=== PATIENT | female | born 1985 | race African-American/Black ===

== ENCOUNTER 2020-12-03 11:37 | Emergency (ER) | payer BC, SELFPAY ==
[2020-12-03] MEDS ORDERED: Ondansetron PF 4 MG/2 ML Vial ONE (12:40)
== END 2020-12-03 11:40 | disposition home or self-care (01) ==
LOC: ERS 11:37
DX: O21.0 Mild hyperemesis gravidarum (principal); Z3A.13 13 weeks gestation of pregnancy
CPT/HCPCS: 36415; 76815; 80053; 81003; 81015; 83690; 84702; 85025; 86900; 86901; 87086; 96374; J2405

== ENCOUNTER 2024-06-30 23:10 | Emergency (ER) | payer BC, SELFPAY ==
[2024-06-30] MEDS ORDERED: Sodium Bicarb 50 MEQ/50 ML Abboject 8.4% SYRINGE ONE (23:13)
[2024-06-30] MEDS ORDERED: EPINEPHrine 1 MG/10 ML Abboject SYRINGE ONE (23:13)
[2024-06-30] MEDS ORDERED: Calcium Chloride 1 GM/10 ML Abboject SYRINGE ONE (23:13)
[2024-06-30] MEDS ORDERED: Tranexamic Acid 1,000 MG/10 ML VIAL ONE (23:15)
[2024-06-30] MEDS ORDERED: NOREPINEPHRINE 8 MG/250 ML-D5W 250 ML ONE (23:23)
[2024-06-30 23:35] LABS: #Basophils 0.06 10x3/uL (0.0-0.2); %Basophils 0.7 % (0.0-1.0); %Lymphocytes 81.4 % (21.0-51.0); %Monocytes 4.8 % (0.0-10.0); %Neutrophils 8.9 % (42.0-75.0); Hematocrit 36.4 % (36.0-47.0); Hemoglobin 10.5 g/dL (12.0-16.0); Mean Corpuscular HGB CONC 28.8 g/dL (32.0-36.0); Mean Corpuscular Hemoglobin 28.2 pg (27.0-31.0); Mean Corpuscular Volume 97.6 fL (78.0-98.0); Mean Platelet Volume 10.4 fL (7.4-10.4); Platelet Count 102 10x3/uL (130-400); RBC Distribution Width 12.6 % (11.5-14.5); Red Blood Cell (RBC) Count 3.73 mill/uL (4.20-5.40)
[2024-06-30 23:44] LABS: INR-International Normal Ratio 1.8; Prothrombin Time 20.7 sec (12.0-14.7)
[2024-06-30 23:45] LABS: PTT 69.1 sec (22.9-36.1)
[2024-06-30 23:53] LABS: ALT (SGPT) 778 U/L (8-55); AST (SGOT) 854 U/L (5-34); Albumin 1.9 g/dL (3.5-5.0); Alkaline Phosphatase 88 U/L (40-110); Anion Gap 26 mmol/L (10-20); BUN (Urea Nitrogen) 11 mg/dL (7.0-18.7); Bilirubin, Total 0.2 mg/dL (0.2-1.2); Calc. Creatinine Clearance 0 mL/min (70-130); Calcium 7.1 mg/dL (7.8-10.44); Carbon Dioxide 11 mmol/L (22-29); Chloride 110 mmol/L (98-107); Estimated GFR 44; Globulin 2.7 g/dL (2.4-3.5); Glucose 325 mg/dL (70-105); Magnesium 2.5 mg/dL (1.6-2.6); Potassium 4.3 mmol/L (3.5-5.1); Protein, Total 4.6 g/dL (6.0-8.3); Sodium 143 mmol/L (136-145)
[2024-06-30 23:57] LABS: Troponin I 0.022 ng/mL (< 0.028)
[2024-07-01] MEDS ORDERED: Sodium Bicarbonate 120 MEQ in Dextrose 5% in Water 1,000 ML IV SCH (00:30)
== END 2024-07-01 00:13 | disposition expired ==
LOC: ERS 23:10
DX: I46.9 Cardiac arrest, cause unspecified (principal)
CPT/HCPCS: 36556; 71045; 80053; 83605; 83735; 83880; 84484; 85025; 85610; 85730; 87040; 92950; 93005; 94002; 94760; 96374; 96375; J0171; J7070